=== PATIENT | male | born 1990 ===

== ENCOUNTER 2023-09-01 18:30 | Emergency (ER) | payer OTHER ==
[~2023-09-01] VITALS: Ht 180.3 cm; Wt 96.2 kg
[2023-09-01 18:40] VITALS: BP 150/90
[2023-09-01] MEDS ORDERED: AMOCLA875 PO (19:38)
== END 2023-09-01 19:51 | disposition home or self-care (01) ==
LOC: ER 18:30
DX: K08.89 Other specified disorders of teeth and supporting structures (principal); Z88.1 Allergy status to other antibiotic agents; Z88.2 Allergy status to sulfonamides
CPT/HCPCS: 96372; 99282-25; A9270; J1885

== ENCOUNTER 2024-09-30 05:07 | Inpatient (IN) | payer OTHER ==
[~2024-09-30] VITALS: Ht 180.3 cm; Wt 99.1 kg
[~2024-09-30 05:07] MED LIST: AMOCLA875 PO
[2024-09-30] MEDS ORDERED: Ondansetron HCl 2 MG / ML 2ML Vial IV ONE (06:30)
[2024-09-30] MEDS ORDERED: Lactated Ringer's 1,000 ML IV ONE ×3 (06:30→07:40)
[2024-09-30] MEDS ORDERED: Ketorolac Tromethamine 30mg Vial IV ONE (06:30)
[2024-09-30 06:47] LABS: BASOPHILS ABSOLUTE AUTO 0.04 K/mm3 (0.00-0.23); BASOPHILS PERCENT AUTO 0 % (0-2); EOSINOPHILS ABSOLUTE AUTO 0.02 K/mm3 (0.00-0.68); EOSINOPHILS PERCENT AUTO 0 % (0-6); Hematocrit 39.5 % (37.0-53.0); Hemoglobin 13.6 g/dL (13.5-17.5); IMMATURE GRAN ABSOLUTE AUTO 0.12 K/mm3 (0.00-0.10); IMMATURE GRAN PERCENT AUTO 1 % (0-1); LYMPHOCYTES ABSOLUTE AUTO 0.59 K/mm3 (0.84-5.20); LYMPHOCYTES PERCENT AUTO 3 % (21-46); MONOCYTES PERCENT AUTO 7 % (4-13); Mean Corpuscular HGB 30.8 pg (26.0-34.0); Mean Corpuscular HGB Conc 34.4 g/dL (31.5-36.5); Mean Corpuscular Volume 90 fL (80-100); Mean Platelet Volume 9.6 fL (9.1-12.4); NEUTROPHILS ABSOLUTE AUTO 17.28 K/mm3 (1.96-9.15); NEUTROPHILS PERCENT AUTO 89 % (41-73); Platelet Count 329 K/mm3 (150-400); RDW Coefficient Variation 11.8 % (11.7-14.2); RDW Standard Deviation 38.5 fL (35.1-46.3); Red Blood Cell Count 4.41 M/mm3 (4.30-5.90); White Blood Cell Count 19.45 K/mm3 (4.00-11.30)
[2024-09-30 07:11] LABS: Albumin, Blood 3.9 g/dL (3.4-5.0); Albumin/Globulin Ratio 1.1 (0.8-1.8); Bilirubin, Total 0.7 mg/dL (0.1-1.0); Calcium, Blood 9.2 mg/dL (8.5-10.1); Creatinine, Blood 0.94 mg/dL (0.60-1.20); Globulin, Blood 3.7 g/dL (2.2-4.0); Potassium, Blood 3.7 mmol/L (3.5-5.5); Total Protein, Blood 7.6 g/dL (6.4-8.2)
[2024-09-30] MEDS ORDERED: Dexamethasone Sod Phos 10 MG/ML 1ML VIAL IV ONE (07:35)
[2024-09-30] MEDS ORDERED: Ampicillin Sod/Sulbactam Sod 3 GM in NS 100 ML IV ONE (07:35)
[2024-09-30] MEDS ORDERED: Morphine Sulfate 4 MG/1 ML Injection IV ONE (07:40)
[2024-09-30] MEDS ORDERED: Ondansetron HCl 2 MG / ML 2ML Vial IV PRN (08:15)
[2024-09-30] MEDS ORDERED: FLU VACC TS2024-25(6MOS UP)/PF 45 MCG/0.5 ML SYRINGE IM PRN (08:15)
[2024-09-30] MEDS ORDERED: Docusate Sodium 100 MG Cap PO SCH (09:00)
[2024-09-30] MEDS ORDERED: Dexamethasone Sodium Phosphate 4 MG/ML 5ML VIAL IV SCH (09:00)
[2024-09-30] MEDS ORDERED: Dexamethasone Sodium Phosphate 4 MG/ML 1ML Vial IV SCH (09:00)
[2024-09-30] MEDS ORDERED: Lactated Ringer's 1,000 ML IV SCH (09:00)
[2024-09-30] MEDS ORDERED: Lactobacil 2-S.Thermo-Bifido 1 1 Cap PO SCH (09:00)
--- NOTE | 2024-09-30 09:23 | NUR ---
Pt. is awake in ED11 when he welcomes my visit. Spouse arrived at bedside right behind me. Pt. displays evidence of great discomfort from the pain of his infection. Since it was uncomfortable for the Pt. to speak, this german tutor chose to keep the visit brief. Pastoral care is given to both the Pt. and spouse. Prayed for Pt. Pt. and spouse verbalized gratitude for the spiritual care support.
[2024-09-30] MEDS ORDERED: HYDROmorphone HCl/Pf 1MG SYR IV ONE (09:50)
[2024-09-30] MEDS ORDERED: NS 250 ML IV PRN (11:25)
--- NOTE | 2024-09-30 11:43 | NUR ---
ARRIVAL NOTE PT ARRIVES TO UNIT ON ED BED, ALERT AND IN OBVIUOS DISCOMFORT. PT SEEMS TO BE GUARDING HIS NECK AND NOT MOVING IT MUCH. PT IS TALKING BUT IT'S QUIET AND RASPY. PT DENIES ANY DIFFICULTY MOVING AIR. NO STRIDOR NOTED. PT ABLE TO STAND AND TRANSFER TO BED IN ROOM. PT AND ORIENTED TO ROOM AND CALL LIGHT GIVEN.
[2024-09-30 11:45] VITALS: BP 138/83
[2024-09-30 11:48] VITALS: BP 139/71
--- NOTE | 2024-09-30 13:49 | NUR ---
DR CORDERO IN ROOM. AFTER EVAL, DISCUSSED CONCERNS WITH HIM ABOUT ADMISSION STATUS AND CHANGING TO HIGHER LEVEL OF CARE DUE TO POSSIBLE AIRWAY COMPROMISE. PT HAS BEEN WHISPERING WITH RASPY VOICE SINCE ARRIVAL. NO COMPLAINTS OF DIFFICULTY BREATHING, BUT DUE TO RAPID ONSET OF SYMPTOMS AND SEVERITY, PROVIDER FEELS MORE COMFORTABLE HAVING PT MONITORED IN A HIGHER LEVEL OF CARE. ALSO DISCUSSED PAIN CONTROL AND ANTI-INFLAMMATORY MEDICATIONS. AWAITING ORDERS THIS TIME. PT REMAINS ON TELE, AT BEDSIDE, AND CALL LIGHT IN REACH.
[2024-09-30] MEDS ORDERED: Ampicillin Sod/Sulbactam Sod 3 GM in NS 100 ML IV SCH (14:00)
--- NOTE | 2024-09-30 14:34 | NUR ---
Spiritual Care Follow Up. Pt. is now admitted to room 212. Pt. is mostly somnolent, but spouse is at bedside and welcomed my visit. Spouse is supportive and does not appear to have evidence of anxiety. Facilitated a review of the Pts. care plan. Spouse verbalized a request to nootify the Pts. jainism about his hospitalization. This collar tacker communicated with jainism leaders.
[2024-09-30] MEDS ORDERED: HYDROmorphone HCl/Pf 1MG SYR IV PRN (14:35)
[2024-09-30] MEDS ORDERED: Ketorolac Tromethamine 30mg Vial IV PRN (14:45)
--- NOTE | 2024-09-30 15:00 | NUR ---
PT TRANSFERRED TO PCU. BEDSIDE REPORT TO SCOTTY PARKER RN.
--- NOTE | 2024-09-30 15:20 | NUR ---
PATIENT RECIEVED FROM SURGICAL FLOOR RN, BEDSIDE REPORT PROVIDED. PATIENT IS SPEAKING ONLY IN A WHISPER, TEMP IS 100.5 F. PATIENT SAYS HE FEELS HOT. A PORTABLE FAN WAS PROVIDED TO THE PATIENT. SUCTION SET UP. MEDICATED PER EMAR FOR PAIN, PAIN STATED 7 OUT OF 10. CALL LIGHT IN REACH.
--- NOTE | 2024-09-30 17:58 | NUR ---
NURSE NOTE SEE PREVIOUS NOTES. PATIENT AMBULATED TO BATHROOM, SBA/ FOR LINE MANAGMENT. A/OX4, ABLE TO MAKE NEEDS KNOWN, REPOSTIONS SELF IN BED. REMAINS AT BEDSIDE. SITTING UP IN BED ATTEMPTING TO EAT LIQUID DINNER. STATES PAIN IS STILL WELL CONTROLED WITH TORADOL. EDUCATED PATIENT ON UNIT FLOW AND INFORMED HIM I WOULD BE BACK FOR BEDSIDE SHIFT REPORT. CALL LIGHT IN REACH.
[2024-09-30 20:18] VITALS: BP 133/75
[2024-09-30 21:35] LABS: Adenovirus Not Detected (NOT DETECT); Bordetella pertussis Not Detected (NOT DETECT); Chlamydophila pneumoniae Not Detected (NOT DETECT); Coronavirus 229E Not Detected (NOT DETECT); Coronavirus HKU1 Not Detected (NOT DETECT); Coronavirus NL63 Not Detected (NOT DETECT); Coronavirus OC43 Not Detected (NOT DETECT); Human Metapneumovirus Not Detected (NOT DETECT); Human Rhinovirus/Enterovirus Not Detected (NOT DETECT); Influenza A/2009-H1 Not Detected (NOT DETECT); Influenza A/H1 Not Detected (NOT DETECT); Influenza A/H3 Not Detected (NOT DETECT); Influenza B Not Detected (NOT DETECT); Mycoplasma pneumoniae Not Detected (NOT DETECT); Parainfluenza Virus 1 Not Detected (NOT DETECT); Parainfluenza Virus 2 Not Detected (NOT DETECT); Parainfluenza Virus 3 Not Detected (NOT DETECT); Parainfluenza Virus 4 Not Detected (NOT DETECT); Respiratory Syncytial Virus Not Detected (NOT DETECT); SARS-Cov-2 (COVID-19), BioFire Not Detected (NOT DETECT)
--- NOTE | 2024-09-30 22:47 | NUR ---
SHIFT SUMMARY NEURO: WNL. SOFT/HOARSE VOICE D/T SORE THROAT. CARDIAC: SINUS/SINUS TACH. HR DECREASED AFTER OXYGEN APPLICATION. PULSES PRESENT THROUGHOUT. NO CP. LUNGS: TACHYPNEIC, SHALLOW. OXYGEN APPLIED AFTER DILAUDID ADMINISTRATION. GI/: WNL
[2024-09-30 23:21] VITALS: BP 128/81
[2024-10-01] VITALS (7 sets, daily range): BP systolic 109–144; BP diastolic 65–85
[2024-10-01 04:25] LABS: BASOPHILS ABSOLUTE AUTO 0.07 K/mm3 (0.00-0.23); BASOPHILS PERCENT AUTO 0 % (0-2); EOSINOPHILS PERCENT AUTO 0 % (0-6); Hematocrit 37.6 % (37.0-53.0); Hemoglobin 12.7 g/dL (13.5-17.5); IMMATURE GRAN PERCENT AUTO 6 % (0-1); LYMPHOCYTES ABSOLUTE AUTO 0.73 K/mm3 (0.84-5.20); LYMPHOCYTES PERCENT AUTO 3 % (21-46); MONOCYTES ABSOLUTE AUTO 1.08 K/mm3 (0.16-1.47); MONOCYTES PERCENT AUTO 4 % (4-13); Mean Corpuscular HGB 31.3 pg (26.0-34.0); Mean Corpuscular HGB Conc 33.8 g/dL (31.5-36.5); Mean Corpuscular Volume 93 fL (80-100); Mean Platelet Volume 10.4 fL (9.1-12.4); NEUTROPHILS ABSOLUTE AUTO 22.03 K/mm3 (1.96-9.15); NEUTROPHILS PERCENT AUTO 87 % (41-73); Platelet Count 281 K/mm3 (150-400); RDW Coefficient Variation 12.5 % (11.7-14.2); RDW Standard Deviation 42.7 fL (35.1-46.3); Red Blood Cell Count 4.06 M/mm3 (4.30-5.90); White Blood Cell Count 25.31 K/mm3 (4.00-11.30)
[2024-10-01 05:20] LABS: Albumin/Globulin Ratio 0.8 (0.8-1.8); Bilirubin, Total 0.4 mg/dL (0.1-1.0); Bun/Creatinine Ratio 19.4 (12.0-20.0); Calcium, Blood 8.8 mg/dL (8.5-10.1); Creatinine, Blood 0.88 mg/dL (0.60-1.20); Globulin, Blood 3.6 g/dL (2.2-4.0); Potassium, Blood 4.5 mmol/L (3.5-5.5); Total Protein, Blood 6.6 g/dL (6.4-8.2)
--- NOTE | 2024-10-01 07:38 | NUR ---
ASSUMING CARE ASSUMED CARE OF THIS PATIENT AT 0700. PATIENT IS ALERT SITTING UP IN BED. NEW BAG OF LR STARTED AT THIS TIME AND VITALS OBTAINED, AFEBRILE, VSS. PATIENT STATES PAIN LEVEL IS MANAGABLE AT THIS TIME. CALL LIGHT IN REACH.
--- NOTE | 2024-10-01 08:44 | NUR ---
"Spiritual Care Consult | Pt. Request Ordered by Dr. Brian Cho Brina is awake and mostly sitting up in bed. Pt. dispalyed evidence of being mush more alert though still spoke with a rasp. Pt. verbalized that he is feeling much better. Pt. is known to this bilingual instructor as a man of ankur. Considered matters of ankur and belief. Prayed with Pt. Pt. verbalized gratitude for the spiritual care support and welcomed this bilingual instructor to return."
[2024-10-01] MEDS ORDERED: Enoxaparin 40 MG/0.4 ML SYR SC SCH (09:00)
[2024-10-01] MEDS ORDERED: Lactated Ringer's 1,000 ML IV SCH (11:05)
[2024-10-01] MEDS ORDERED: Ketorolac Tromethamine 15mg Vial IV PRN ×2 (11:10→16:00)
--- NOTE | 2024-10-01 12:36 | NUR ---
Spiritual Care Family Support Pt. is awake and welcomed my visit. Spouse is at bedside and is the focus of this visit. Spouse displayed evidence of being engaged and aware. Spouse verbalized a strong family support system. Considered other matters of ankur and family. Pt. and spouse verbalized gratitude fo rht espiritual care visit.
--- NOTE | 2024-10-01 18:19 | NUR ---
SHIFT SUMMARY PATIENT IS A/O X4, REPOSTIONS SELF IN BED, ABLE TO MAKE NEEDS KNOWN. SBA TO TRANSFER TO BATHROOM FOR ASSISTANCE WITH LINE MANAGMENT. VSS, PATIENT ON ROOM AIR, MEDICATED ONCE THIS SHIFT FOR PAIN. PATIENT WAS ABLE TO SHOWER THIS SHIFT AND SPENT TIME SITTING UP IN BED VISITING WITH FAMILY. NO ACUTE CHANGES DURING SHIFT. CALL LIGHT IN REACH WILL CONTINUE TO TREAT UNTIL END OF SHIFT.
--- NOTE | 2024-10-01 21:31 | NUR ---
U 05 TRANSFER. REPORT TAKEN FROM TEA MACHADO. PATIENT ARRIVED VIA W/C WITH PERSONAL BELONGINGS. AXOX 4 AND INDEPENDENT TRANSFER. LR RESTARTED @ 100 mL/HR. DENIES CHEST PAIN, SOB, AND N/V. WCTM.
--- NOTE | 2024-10-01 22:12 | NUR ---
TRANSFER OF CARE [facility]AUGHN TRANSFERRED TO MEDICAL FLOOR AROUND 2100. VSS, NO ACUTE DISTRESS. PT ALERT AND FULLY ORIENTED AND INDEPENDENT. REPORT GIVEN TO GRACIELA RUCKER.
[2024-10-02 03:35] VITALS: BP 131/78
--- NOTE | 2024-10-02 04:40 | NUR ---
SHIFT SUMMARY PATIENT HAD NO ACUTE CHANGES. AXOX 4 AND INDEPENDENT IN ROOM. PIV INTACT. LR INFUSING @ 100 mL/HR. IV ABX INFUSED. DENIES CHEST PAIN, SOB, AND N/V. SOFT/HOARSE VOICE WITHOUT PAIN. ONE COUGHING EVENT RESOLVED ON OWN. CALL LIGHT IN REACH. BED IN LOWEST POSITION. WILL CONTINUE TO MONITOR UNTIL DAY SHIFT NURSE ASSUMES CARE.
[2024-10-02 06:07] LABS: BASOPHILS ABSOLUTE AUTO 0.06 K/mm3 (0.00-0.23); BASOPHILS PERCENT AUTO 0 % (0-2); EOSINOPHILS ABSOLUTE AUTO 0.04 K/mm3 (0.00-0.68); EOSINOPHILS PERCENT AUTO 0 % (0-6); Hematocrit 35.1 % (37.0-53.0); IMMATURE GRAN ABSOLUTE AUTO 1.51 K/mm3 (0.00-0.10); IMMATURE GRAN PERCENT AUTO 5 % (0-1); LYMPHOCYTES ABSOLUTE AUTO 1.19 K/mm3 (0.84-5.20); LYMPHOCYTES PERCENT AUTO 4 % (21-46); MONOCYTES ABSOLUTE AUTO 0.92 K/mm3 (0.16-1.47); MONOCYTES PERCENT AUTO 3 % (4-13); Mean Corpuscular HGB 31.5 pg (26.0-34.0); Mean Corpuscular HGB Conc 34.2 g/dL (31.5-36.5); Mean Corpuscular Volume 92 fL (80-100); Mean Platelet Volume 10.1 fL (9.1-12.4); NEUTROPHILS ABSOLUTE AUTO 25.57 K/mm3 (1.96-9.15); NEUTROPHILS PERCENT AUTO 87 % (41-73); Platelet Count 331 K/mm3 (150-400); RDW Coefficient Variation 12.6 % (11.7-14.2); RDW Standard Deviation 42.5 fL (35.1-46.3); Red Blood Cell Count 3.81 M/mm3 (4.30-5.90); White Blood Cell Count 29.29 K/mm3 (4.00-11.30)
[2024-10-02 06:26] LABS: Bun/Creatinine Ratio 23.5 (12.0-20.0); C-REACTIVE PROTEIN, EXT RANGE 15.9 mg/dL (0.000-0.300); Calcium, Blood 9.1 mg/dL (8.5-10.1); Creatinine, Blood 0.81 mg/dL (0.60-1.20); Potassium, Blood 4.1 mmol/L (3.5-5.5)
[2024-10-02 07:43] VITALS: BP 135/76
--- NOTE | 2024-10-02 09:31 | NUR ---
pt sitting up in bed watching tv, pleasant and cooperative with care, follows commands well, denies pain at this time, feels like he has improved, a/ox4, lungs are clear t/o, on r/a, no cough noted, hrr, no edema noted, ppp+2, cap refill <3 sec, vs stable, afebrile, piv to rac infusing lr as ordered, btx4, abd flat soft nontender, reports no bm since in hosp, voids with out diff, skin c/w/d, isaac suarez, states he's swallowing without diff, call light in reach.
--- NOTE | 2024-10-02 14:02 | NUR ---
REPORT FROM LUIS FERNANDO GOULD RN, PATIENT ALERT AND ORIENTX4, NO S/S OF DISTRESS, FRIEND AT BEDSIDE, ADVANCED DIET TO SOFT PER DR RODRIGUEZ, PLEASANT TO CARE, CALL LIGHT WITH IN REACH
--- NOTE | 2024-10-02 14:04 | NUR ---
Pt. is sitting up in bed and was finishing lunch when he welcomed my visit. Pt. is pleasant. Soon after I arrived Pts. spouse arrived to bedside with her own lunch. Pt. verbalized some of the physical progress that he has experienced. Listen with interest, empathy, and an encouraging presence. Prayed for the Pt. Pt. verbalized gratitude for the spiritual care visit giving this property management intern instructions to update his evangelical leadership. This property management intern honored this request.
[2024-10-02 15:51] VITALS: BP 147/82
[2024-10-02 20:13] VITALS: BP 140/81
[2024-10-03 04:47] VITALS: BP 133/90
[2024-10-03 04:58] LABS: BASOPHILS ABSOLUTE AUTO 0.08 K/mm3 (0.00-0.23); BASOPHILS PERCENT AUTO 0 % (0-2); EOSINOPHILS PERCENT AUTO 0 % (0-6); Hematocrit 36.5 % (37.0-53.0); Hemoglobin 12.5 g/dL (13.5-17.5); IMMATURE GRAN PERCENT AUTO 4 % (0-1); LYMPHOCYTES ABSOLUTE AUTO 1.86 K/mm3 (0.84-5.20); LYMPHOCYTES PERCENT AUTO 7 % (21-46); MONOCYTES ABSOLUTE AUTO 0.77 K/mm3 (0.16-1.47); MONOCYTES PERCENT AUTO 3 % (4-13); Mean Corpuscular HGB 31.3 pg (26.0-34.0); Mean Corpuscular HGB Conc 34.2 g/dL (31.5-36.5); Mean Corpuscular Volume 92 fL (80-100); Mean Platelet Volume 10.3 fL (9.1-12.4); NEUTROPHILS ABSOLUTE AUTO 23.66 K/mm3 (1.96-9.15); NEUTROPHILS PERCENT AUTO 86 % (41-73); Platelet Count 362 K/mm3 (150-400); RDW Coefficient Variation 12.6 % (11.7-14.2); RDW Standard Deviation 42.6 fL (35.1-46.3); Red Blood Cell Count 3.99 M/mm3 (4.30-5.90); White Blood Cell Count 27.37 K/mm3 (4.00-11.30)
[2024-10-03 05:36] LABS: Bun/Creatinine Ratio 23.6 (12.0-20.0); Calcium, Blood 8.7 mg/dL (8.5-10.1); Creatinine, Blood 0.76 mg/dL (0.60-1.20); Potassium, Blood 4.3 mmol/L (3.5-5.5)
[2024-10-03 07:35] VITALS: BP 129/86
--- NOTE | 2024-10-03 07:57 | NUR ---
SHIFT SUMMARY FOR 7P TO 7A UNEVENTFUL SHIFT, AFEBRILE/VSS, PRN TORADOL X1 FOR PAIN OF 4 TO 5/10 IN RT EAR AREA & PAIN 0-1 AFTER, STATES PAIN SIGNIFICANTLY DECREASED OVERALL & DENIED ANY PAIN IN THROAT OR JAW, ONLY EAR AREA. , LR INFUSING AT 150 ML PER HR ALL SHIFT ,UNASYN CONT. EVERY 6 HRS AND NO ADVERSE REACTIONS. VOIDING SUFFICIENT VOLUMES, OCCASSIONAL DRY COUGH NOTED, REPORTS HE IS TOLERATING THE SOFT DIET WELL.
[2024-10-03] MEDS ORDERED: AMOCLA875 PO (10:03)
[2024-10-03] MEDS ORDERED: Prednisone10 MG PO (10:10)
--- NOTE | 2024-10-03 12:28 | NUR ---
DISCHARGE NOTE PATIENT A/OX4, ABLE TO MAKE NEEDS KNOWN. PLEASANT AND COOPERATIVE WITH CARE. STATES PAIN HAS DECREASED AND IS CURRENTLY 2/10. STATES MORE "TENDER" THAN PAINFUL TO THROAT AND RIGHT SIDED NECK. DENIES NEED FOR PAIN MEDICATION. DISCHARGE MEDICATIONS SENT TO [facility] PER PATIENT REQUEST AND PATIENT EDUCATED REGAURDING MEDICATION INSTURCTIONS, INCLUDING TITRATING STEROID DOSE. PATIENT STATES UNDERSTANDING AND AGREEABLE TO PLAN. EDUCATED REGAURDING FOLLWO UP APPOINTMENT WITH PRIMARY CARE WITHIN 1 WEEK. PATIENT DOSCHARGED THIS MORNING TO HIS OWN VEHICLE TO DRIVE HIMSELF HOME. NO OTHER CONCERNS AT THIS TIME.
== END 2024-10-03 11:01 | disposition home or self-care (01) | DRG 872 ==
LOC: ER 05:07 → ERHOLD 08:10 → SURS 11:39 → PCU 14:46 → MEDS 10-01 20:53
PROVIDERS: Family Medicine; Student in an Organized Health Care Education/Training Program; ADMIT Hospitalist
DX: A41.9 Sepsis, unspecified organism (principal); J05.10 Acute epiglottitis without obstruction; Z88.2 Allergy status to sulfonamides; Z88.1 Allergy status to other antibiotic agents; Z88.8 Allergy status to other drugs, medicaments and biological substances
CPT/HCPCS: 0202U; 36415; 70491; 80048; 80053; 83605; 85025; 86140; 87040; 87081; 87430; 96361; 96374-59; 96375; 99284-25; A9270; J0295; J1100; J1171; J1650; J1885; J2270; J2405; J7050; J7120; Q9967